=== PATIENT | female | born 1940 | race Caucasian/White ===

== ENCOUNTER → 2017-03-27 | Outpatient (CLI) | payer MEDICARE, OTHER ==
[~2017-03-27] MED LIST: AMIT50TA PO; CHOL100011 PO; CHOL10002 PO; CIPR500T87 PO; COLE625T12 PO; CRAN1TAB6 PO; CRAN500C PO; EZET1TAB35 PO; FENO145T32 PO; FENO160T PO; FERR-46 PO; GABA300C10 PO; GABA600T2 PO; HYDR-3241 PO; LEVO88TA4 PO; MULT-658 PO; MULT1TAB60 PO; NIAC500T7 PO; POTA10TA4 PO; PREG50CA PO; PROP80CA3 PO; SIMV80TA3 PO; SULF1TAB24 PO
== END | disposition home or self-care (01) ==
LOC: RAD 09:57
PROVIDERS: ATTEND Urology
DX: N20.0 Calculus of kidney (principal); K59.00 Constipation, unspecified
CPT/HCPCS: 74000

== ENCOUNTER 2017-03-28 05:38 | Day surgery (SDC) | payer MEDICARE, OTHER ==
[~2017-03-28] VITALS: Ht 162.6 cm; Wt 77.2 kg
[2017-03-28] MEDS ORDERED: LACTATED RINGERS 1,000 ML IV SCH (06:04)
[2017-03-28 06:06] VITALS: BP 166/67
[2017-03-28] MEDS ORDERED: LIDOCAINE 1%, 2ML SQ PRN (06:30)
[2017-03-28] MEDS ORDERED: FENTANYL PF 100 MCG/2ML ONE (07:09)
[2017-03-28] MEDS ORDERED: MIDAZOLAM 1 MG/ML, 2ML ONE (07:09)
[2017-03-28] MEDS ORDERED: PROPOFOL 10 MG/ML, 20ML ONE (07:10)
[2017-03-28] MEDS ORDERED: LIDOCAINE-MPF 2% ,5ML ONE (07:10)
[2017-03-28] MEDS ORDERED: ROCURONIUM 10 MG/ML ONE (07:10)
[2017-03-28] MEDS ORDERED: PHENYLEPHRINE 10 MG/ML ONE (07:11)
[2017-03-28] MEDS ORDERED: LIDOCAINE 4%, 4 ML SYR/CANN TP ONE (07:12)
[2017-03-28] MEDS ORDERED: CIPROFLOXACIN/PMX 400MG/200ML 200 ML ONE (07:29)
[2017-03-28] MEDS ORDERED: ONDANSETRON 2MG/ML, 2ML ONE ×2 (07:30)
[2017-03-28] MEDS ORDERED: DEXAMETHASONE 4 MG/ML, 1ML ONE ×2 (07:30)
[2017-03-28] MEDS ORDERED: GLYCOPYRROLATE 0.2MG/1ML, 5ML ONE (08:08)
[2017-03-28] MEDS ORDERED: NEOSTIGMINE 1 MG/ML, 10ML ONE (08:08)
[2017-03-28] MEDS ORDERED: MEPERIDINE/PF 25MG/0.5ML IVPush PRN (08:30)
[2017-03-28] MEDS ORDERED: OXYcodone 5 MG/5 ML ORAL.SOL UDC PO PRN (08:30)
[2017-03-28] MEDS ORDERED: ONDANSETRON 2MG/ML, 2ML IVPush PRN (08:30)
[2017-03-28] MEDS ORDERED: FENTANYL PF 100 MCG/2ML IV PRN (08:30)
[2017-03-28] MEDS ORDERED: ACETAMINOPHEN 325 MG TABLET PO PRN (08:30)
[2017-03-28] MEDS ORDERED: HYDROmorphone 1 MG/ML, 1ML IV PRN (08:30)
[2017-03-28] MEDS ORDERED: hydrALAzine 20 MG/ML, 1ML IV PRN (08:30)
[2017-03-28] MEDS ORDERED: LABETALOL 5MG/ML, 20ML IV PRN (08:30)
[2017-03-28] MEDS ORDERED: PROMETHAZINE 25 MG/ML, 1ML IV PRN (08:30)
[2017-03-28] MEDS ORDERED: ACETAMINOPHEN 325 MG TABLET ONE (09:44)
[2017-03-28] MEDS ORDERED: ACETAMINOPHEN 650 MG/20.3 ML UDC ONE (09:44)
== END 2017-03-28 11:15 ==
LOC: OUT 05:38
PROVIDERS: ATTEND Urology
DX: N20.0 Calculus of kidney (principal); E78.5 Hyperlipidemia, unspecified; E03.9 Hypothyroidism, unspecified; Z87.891 Personal history of nicotine dependence; Z87.440 Personal history of urinary (tract) infections; Z86.14 Personal history of Methicillin resistant Staphylococcus aureus infection; Z88.0 Allergy status to penicillin; Z88.8 Allergy status to other drugs, medicaments and biological substances
CPT/HCPCS: 50590; J0744; J1100; J2250; J2370; J2405; J2704; J2710; J3010; J3490; J7120

== ENCOUNTER 2019-03-23 10:12 | Inpatient (IN) | payer MEDICARE, OTHER ==
[~2019-03-23] VITALS: Ht 162.6 cm; Wt 78.4 kg
[~2019-03-23 10:12] MED LIST changes: -GABA600T2 PO; +GABA600T7 PO; -NIAC500T7 PO; +SIMV80TA18 PO; -SIMV80TA3 PO; +[UNRECOGNIZED DRUG - CODE] PO
[2019-03-23] MEDS ORDERED: SODIUM CHLORIDE FLUSH 10ML SYR IVF ONE (11:00)
--- NOTE | 2019-03-23 11:02 | NUR ---
PT WALKED TO BATHROOM, PROVIDED URINE SAMPLE. URINE WALKED TO LAB
[2019-03-23 11:15] LABS: BASOPHILS # (AUTO) 0.02 x10^3/uL (0-0.1); BASOPHILS % (AUTO) 0 % (0-1); EOSINOPHILS # (AUTO) 0.28 x10^3/uL (0-0.4); EOSINOPHILS % (AUTO) 2 % (1-7); LYMPHOCYTES % (AUTO) 16 % (22-44); MD NO; MEAN CORPUSCULAR HEMOGLOBIN 31.6 pg (27.0-34.8); MEAN CORPUSCULAR HGB CONC 32.9 g/dL (32.4-35.8); MEAN CORPUSCULAR VOLUME 96.2 fL (80-100); MEAN PLATELET VOLUME 8.9 fL (7.4-10.4); MONOCYTES # (AUTO) 0.92 x10^3/uL (0.2-0.8); MONOCYTES % (AUTO) 8 % (2-9); NEUTROPHILS # (AUTO) 9.09 x10^3/uL (1.8-6.8); NEUTROPHILS % (AUTO) 74 % (42-75); PLATELET COUNT 225 x10^3/uL (130-400); RED BLOOD COUNT 4.55 x10^6/uL (3.82-5.3); RED CELL DISTRIBUTION WIDTH 13.2 % (9.6-15.2)
[2019-03-23 11:25] LABS: ALBUMIN 3.8 g/dL (3.4-5.0); ANION GAP 7 mmol/L (5-15); CALCIUM 9.3 mg/dL (8.5-10.1); CHLORIDE 107 mmol/L (98-107)
[2019-03-23 11:29] LABS: ALANINE AMINOTRANSFERASE 27 U/L (12-78); ALKALINE PHOSPHATASE 76 U/L (45-117); BILIRUBIN,TOTAL 0.8 mg/dL (0.2-1.0); CREATININE 1.17 mg/dL (0.55-1.02); TOTAL PROTEIN 7.9 g/dL (6.4-8.2)
--- NOTE | 2019-03-23 12:06 | NUR ---
[place] COMMODE PT UP AND DOWN TO BATHROOM FREQUENTLY ALTHOUGH UNABLE TO PROVIDE STOOL SAMPLE, STATES "I JUST ALWAYS FEEL LIKE I HAVE TO GO". CALL L[facility] MARKO GALE, PT ON MONITOR. FAMILY AT BEDSIDE.
[2019-03-23 12:33] LABS: CULTURE INDICATED? YES; MICROSCOPIC INDICATED
--- NOTE | 2019-03-23 12:36 | NUR ---
PT TO CT
[2019-03-23] MEDS ORDERED: CEFTRIAXONE PMX 1GM/50ML 50 ML ONE (13:43)
--- NOTE | 2019-03-23 13:52 | NUR ---
REPORT FROM BREAK RN: PT TO BE ADMITTED. ABX INFUSING. AWAITING BED ASSIGNMENT
[2019-03-23] MEDS ORDERED: hydrALAzine 20 MG/ML, 1ML IVPush PRN (14:00)
[2019-03-23] MEDS ORDERED: ACETAMINOPHEN 325 MG TABLET PO PRN (14:00)
[2019-03-23] MEDS ORDERED: CEFTRIAXONE PMX 1GM/50ML 50 ML IV ONE (14:00)
[2019-03-23] MEDS ORDERED: GUAIFENESIN/DM 200-20MG, 10ML UDC PO PRN (14:00)
[2019-03-23] MEDS ORDERED: TRAZODONE 50MG TABLET PO PRN (14:00)
[2019-03-23] MEDS ORDERED: BUTALB/APAP/CAFFEINE 50MG/325MG/40MG PO PRN (14:00)
[2019-03-23] MEDS ORDERED: METRONIDAZOLE PMX 500MG/100ML 100 ML IV ONE (14:00)
[2019-03-23] MEDS ORDERED: ONDANSETRON ODT 4 MG PO PRN (14:00)
[2019-03-23] MEDS ORDERED: ONDANSETRON 2MG/ML, 2ML IVPush PRN (14:00)
[2019-03-23] MEDS ORDERED: POLYETHYLENE GLYCOL 17 GM PACKET PO PRN (14:00)
[2019-03-23] MEDS ORDERED: SODIUM CHLORIDE 0.9% 1,000ML IVBOLUS ONE (14:30)
--- NOTE | 2019-03-23 14:33 | NUR ---
REPORT TO LETA LÓPEZ
[2019-03-23 15:06] LABS: FREE T4 (FREE THYROXINE) 1.12 ng/dL (0.76-1.46)
[2019-03-23] MEDS ORDERED: FENO145T32 PO (15:10)
[2019-03-23] MEDS ORDERED: NITR50CA PO (15:10)
[2019-03-23] MEDS ORDERED: PROP80TA PO (15:10)
[2019-03-23] MEDS ORDERED: HYDROmorphone 1 MG/ML, 1ML VIAL ONE (15:29)
[2019-03-23] MEDS: HYDROmorphone 2 MG/ML, 1ML IVPush PRN ×3 (15:33→21:38)
[2019-03-23] MEDS: CHOLECALCIFEROL 400 UNITS/ML ORAL SOL PO SCH (16:30)
[2019-03-23 16:47] VITALS: BP 125/73
[2019-03-23] MEDS: METRONIDAZOLE PMX 500MG/100ML 100 ML IV SCH (18:00)
[2019-03-23] MEDS: GABAPENTIN 300 MG CAPSULE PO SCH ×2 (18:03→21:39)
[2019-03-23] MEDS: COLESEVELAM 625 MG TABLET PO SCH ×2 (18:04→21:38)
[2019-03-23] MEDS: ASCORBIC ACID 500 MG TABLET PO SCH (18:04)
[2019-03-23 18:57] VITALS: BP 107/62
[2019-03-23] MEDS ORDERED: AMITRIPTYLINE 50 MG TABLET PO SCH (21:00)
[2019-03-23] MEDS: SIMVASTATIN 40 MG TABLET PO SCH (21:38)
[2019-03-23] MEDS ORDERED: METRONIDAZOLE PMX 500MG/100ML 100 ML IV SCH (22:00)
[2019-03-24 00:30] VITALS: BP 98/63
[2019-03-24] MEDS: METRONIDAZOLE PMX 500MG/100ML 100 ML IV SCH ×3 (01:55→16:57)
[2019-03-24 05:17] LABS: BASOPHILS # (AUTO) 0.06 x10^3/uL (0-0.1); BASOPHILS % (AUTO) 1 % (0-1); EOSINOPHILS # (AUTO) 0.13 x10^3/uL (0-0.4); EOSINOPHILS % (AUTO) 1 % (1-7); LYMPHOCYTES # (AUTO) 1.93 x10^3/uL (1-3.4); LYMPHOCYTES % (AUTO) 19 % (22-44); MD NO; MEAN CORPUSCULAR HEMOGLOBIN 31.1 pg (27.0-34.8); MEAN CORPUSCULAR HGB CONC 32.8 g/dL (32.4-35.8); MEAN CORPUSCULAR VOLUME 94.8 fL (80-100); MEAN PLATELET VOLUME 8.6 fL (7.4-10.4); MONOCYTES # (AUTO) 1.03 x10^3/uL (0.2-0.8); MONOCYTES % (AUTO) 10 % (2-9); NEUTROPHILS # (AUTO) 6.89 x10^3/uL (1.8-6.8); NEUTROPHILS % (AUTO) 69 % (42-75); PLATELET COUNT 163 x10^3/uL (130-400); RED BLOOD COUNT 3.63 x10^6/uL (3.82-5.3); RED CELL DISTRIBUTION WIDTH 13.1 % (9.6-15.2)
[2019-03-24 05:23] LABS: ALBUMIN 2.8 g/dL (3.4-5.0); ANION GAP 6 mmol/L (5-15); CALCIUM 8.4 mg/dL (8.5-10.1); CHLORIDE 111 mmol/L (98-107)
[2019-03-24 05:27] LABS: ALANINE AMINOTRANSFERASE 26 U/L (12-78); ALKALINE PHOSPHATASE 60 U/L (45-117); BILIRUBIN,TOTAL 0.7 mg/dL (0.2-1.0); CREATININE 1.12 mg/dL (0.55-1.02)
[2019-03-24 07:25] VITALS: BP 108/69
[2019-03-24] MEDS: FENOFIBRATE 145 MG TABLET PO SCH (07:51)
[2019-03-24] MEDS: GABAPENTIN 300 MG CAPSULE PO SCH ×3 (07:52→20:37)
[2019-03-24] MEDS: FERROUS SULFATE 325 MG TABLET PO SCH (07:52)
[2019-03-24] MEDS: COLESEVELAM 625 MG TABLET PO SCH ×3 (07:52→20:38)
[2019-03-24] MEDS: MULTIVITS,STRESS FORMULA 1 TABLET PO SCH (07:53)
[2019-03-24] MEDS: ASCORBIC ACID 500 MG TABLET PO SCH ×2 (07:53→16:53)
[2019-03-24] MEDS ORDERED: POTASSIUM CHLORIDE 20 MEQ TAB.ER.PRT PO ONE (08:00)
[2019-03-24] MEDS: CEFTRIAXONE PMX 1GM/50ML 50 ML IV SCH ×2 (08:03→20:36)
[2019-03-24] MEDS: MAGNESIUM OXIDE 400 MG TABLET PO SCH (08:03)
[2019-03-24] MEDS: LEVOTHYROXINE 88 MCG TABLET PO SCH (08:03)
[2019-03-24] MEDS: HYDROmorphone 2 MG/ML, 1ML IVPush PRN (08:50)
[2019-03-24] MEDS ORDERED: PREGABALIN 25 MG CAPSULE PO SCH (09:00)
[2019-03-24] MEDS ORDERED: TEMPLATE NON-FORMULARY MED. (Cranberry Extract** (Cran-Max**) 500 MG) PO SCH (09:00)
[2019-03-24] MEDS ORDERED: SIMV80TA18 PO (09:49)
[2019-03-24] MEDS ORDERED: AMIT100T PO (09:51)
[2019-03-24 12:19] VITALS: BP 93/59
[2019-03-24] MEDS: HYDROcodone/APAP 5/325 TABLET PO PRN ×2 (14:12→20:38)
[2019-03-24] MEDS: POTASSIUM CHLORIDE 20 MEQ in SODIUM CHLORIDE 0.45% 1,000 ML IV SCH (14:18)
[2019-03-24] MEDS: CHOLECALCIFEROL 400 UNITS/ML ORAL SOL PO SCH (16:30)
[2019-03-24 18:47] VITALS: BP 98/56
[2019-03-24] MEDS: SIMVASTATIN 40 MG TABLET PO SCH (20:39)
[2019-03-24] MEDS ORDERED: AMITRIPTYLINE 50 MG TABLET PO SCH (21:00)
[2019-03-24] MEDS ORDERED: SIMVASTATIN 40 MG TABLET PO SCH (21:00)
[2019-03-25 00:12] VITALS: BP 96/72
[2019-03-25] MEDS: METRONIDAZOLE PMX 500MG/100ML 100 ML IV SCH ×2 (02:00→10:22)
[2019-03-25] MEDS: POTASSIUM CHLORIDE 20 MEQ in SODIUM CHLORIDE 0.45% 1,000 ML IV SCH (02:01)
[2019-03-25] MEDS: HYDROcodone/APAP 5/325 TABLET PO PRN (02:08)
[2019-03-25] MEDS: LEVOTHYROXINE 88 MCG TABLET PO SCH (05:29)
[2019-03-25 05:33] LABS: BASOPHILS # (AUTO) 0.01 x10^3/uL (0-0.1); BASOPHILS % (AUTO) 0 % (0-1); EOSINOPHILS # (AUTO) 0.25 x10^3/uL (0-0.4); EOSINOPHILS % (AUTO) 5 % (1-7); LYMPHOCYTES % (AUTO) 29 % (22-44); MD NO; MEAN CORPUSCULAR HEMOGLOBIN 31.5 pg (27.0-34.8); MEAN CORPUSCULAR HGB CONC 33.4 g/dL (32.4-35.8); MEAN CORPUSCULAR VOLUME 94.4 fL (80-100); MEAN PLATELET VOLUME 7.9 fL (7.4-10.4); MONOCYTES # (AUTO) 0.53 x10^3/uL (0.2-0.8); MONOCYTES % (AUTO) 10 % (2-9); NEUTROPHILS # (AUTO) 2.87 x10^3/uL (1.8-6.8); NEUTROPHILS % (AUTO) 56 % (42-75); PLATELET COUNT 151 x10^3/uL (130-400)
[2019-03-25 05:42] LABS: CHLORIDE 115 mmol/L (98-107)
[2019-03-25 05:47] LABS: ALANINE AMINOTRANSFERASE 20 U/L (12-78); ALBUMIN 2.5 g/dL (3.4-5.0); ALKALINE PHOSPHATASE 56 U/L (45-117); ANION GAP 4 mmol/L (5-15); BILIRUBIN,TOTAL 0.3 mg/dL (0.2-1.0); CALCIUM 8.2 mg/dL (8.5-10.1); TOTAL PROTEIN 5.6 g/dL (6.4-8.2)
[2019-03-25 07:06] VITALS: BP 110/56
[2019-03-25] MEDS ORDERED: POTASSIUM PHOSPHATE 44 MEQ in SODIUM CHLORIDE 0.9% 500 ML IV ONE (07:30)
[2019-03-25] MEDS: MULTIVITS,STRESS FORMULA 1 TABLET PO SCH (08:01)
[2019-03-25] MEDS: FERROUS SULFATE 325 MG TABLET PO SCH (08:02)
[2019-03-25] MEDS: CEFTRIAXONE PMX 1GM/50ML 50 ML IV SCH (08:02)
[2019-03-25] MEDS: FENOFIBRATE 145 MG TABLET PO SCH (08:02)
[2019-03-25] MEDS: ASCORBIC ACID 500 MG TABLET PO SCH (08:02)
[2019-03-25] MEDS: MAGNESIUM OXIDE 400 MG TABLET PO SCH (08:02)
[2019-03-25] MEDS: GABAPENTIN 300 MG CAPSULE PO SCH (08:02)
[2019-03-25] MEDS: COLESEVELAM 625 MG TABLET PO SCH (08:02)
[2019-03-25] MEDS ORDERED: NEUTRA PHOS K 250 MG TABLET PO SCH (12:00)
[2019-03-25] MEDS ORDERED: POTASSIUM CHLORIDE 20 MEQ TAB.ER.PRT PO SCH (12:00)
[2019-03-25] MEDS ORDERED: METR500T PO (12:05)
[2019-03-25] MEDS ORDERED: MAGN400T50 PO (12:05)
[2019-03-25] MEDS ORDERED: POTA20TA6 PO (12:05)
[2019-03-25] MEDS ORDERED: PHOS250T3 PO (12:05)
[2019-03-25] MEDS ORDERED: CEFD300C37 PO (12:05)
[2019-03-25 12:48] VITALS: BP 108/70
== END 2019-03-25 16:30 | disposition home or self-care (01) | DRG 371 ==
LOC: ED 12:14 → EDIP 14:18 → 3N 16:05
PROVIDERS: ADMIT Family Medicine; ATTEND Family Medicine
DX: A04.9 Bacterial intestinal infection, unspecified (principal); J18.1 Lobar pneumonia, unspecified organism; N17.9 Acute kidney failure, unspecified; N39.0 Urinary tract infection, site not specified; E03.9 Hypothyroidism, unspecified; E78.00 Pure hypercholesterolemia, unspecified; E78.5 Hyperlipidemia, unspecified; E83.39 Other disorders of phosphorus metabolism; E83.42 Hypomagnesemia; E86.0 Dehydration; E87.6 Hypokalemia; G57.93 Unspecified mononeuropathy of bilateral lower limbs; H54.7 Unspecified visual loss; I10 Essential (primary) hypertension; Z87.442 Personal history of urinary calculi; Z90.49 Acquired absence of other specified parts of digestive tract; Z90.710 Acquired absence of both cervix and uterus; Z88.0 Allergy status to penicillin
CPT/HCPCS: 36415; 74177; 80053; 81001; 83605; 83735; 84100; 84145; 84439; 84443; 84481; 85025; 87040; 87077; 87086; 87186; 99285; G0378; J0696; J1170; J3480; J7030; J7040

== ENCOUNTER 2019-04-18 14:33 | Outpatient (CLI) | payer MEDICARE, OTHER ==
[~2019-04-18 14:33] MED LIST changes: +AMIT100T PO; +CEFD300C37 PO; +MAGN400T50 PO; +METR500T PO; +NITR50CA PO; +PHOS250T3 PO; +POTA20TA6 PO; +PROP80TA PO
== END 2019-04-18 23:59 | disposition home or self-care (01) ==
LOC: CFH 14:33
PROVIDERS: ATTEND Nurse Practitioner Family
DX: I65.23 Occlusion and stenosis of bilateral carotid arteries (principal); R29.6 Repeated falls; R29.810 Facial weakness; R47.01 Aphasia; Z86.14 Personal history of Methicillin resistant Staphylococcus aureus infection; Z88.0 Allergy status to penicillin
CPT/HCPCS: 93880

== ENCOUNTER 2019-05-23 07:32 | Outpatient (CLI) | payer MEDICARE, OTHER | END 2019-05-23 23:59 | disposition home or self-care (01) | LOC: CVU 07:32 | PROVIDERS: ATTEND Nurse Practitioner Family | DX: I08.3 Combined rheumatic disorders of mitral, aortic and tricuspid valves (principal); E78.5 Hyperlipidemia, unspecified; Z86.73 Personal history of transient ischemic attack (TIA), and cerebral infarction without residual deficits; Z87.891 Personal history of nicotine dependence | CPT/HCPCS: 93306 ==

== ENCOUNTER 2019-07-21 13:04 | Emergency (ER) | payer MEDICARE, OTHER ==
[~2019-07-21] VITALS: Ht 162.6 cm; Wt 69.3 kg
[2019-07-21 13:28] LABS: BASOPHILS # (AUTO) 0.02 x10^3/uL (0-0.1); BASOPHILS % (AUTO) 1 % (0-1); EOSINOPHILS % (AUTO) 4 % (1-7); LYMPHOCYTES # (AUTO) 1.49 x10^3/uL (1-3.4); LYMPHOCYTES % (AUTO) 28 % (22-44); MD NO; MEAN CORPUSCULAR HEMOGLOBIN 30.4 pg (27.0-34.8); MEAN CORPUSCULAR HGB CONC 33.1 g/dL (32.4-35.8); MEAN CORPUSCULAR VOLUME 91.8 fL (80-100); MEAN PLATELET VOLUME 8.6 fL (7.4-10.4); MONOCYTES # (AUTO) 0.49 x10^3/uL (0.2-0.8); MONOCYTES % (AUTO) 9 % (2-9); NEUTROPHILS # (AUTO) 3.13 x10^3/uL (1.8-6.8); NEUTROPHILS % (AUTO) 59 % (42-75); PLATELET COUNT 208 x10^3/uL (130-400); RED BLOOD COUNT 4.16 x10^6/uL (3.82-5.3); RED CELL DISTRIBUTION WIDTH 12.6 % (9.6-15.2)
[2019-07-21 13:39] LABS: ALBUMIN 3.3 g/dL (3.4-5.0); ANION GAP 5 mmol/L (5-15); CALCIUM 9.8 mg/dL (8.5-10.1); CHLORIDE 111 mmol/L (98-107)
[2019-07-21 13:42] LABS: ALANINE AMINOTRANSFERASE 17 U/L (12-78); ALKALINE PHOSPHATASE 74 U/L (45-117); BILIRUBIN,TOTAL 0.7 mg/dL (0.2-1.0); CREATININE 1.18 mg/dL (0.55-1.02); TOTAL PROTEIN 7.6 g/dL (6.4-8.2)
--- NOTE | 2019-07-21 16:15 | NUR ---
PT TO ROOM FROM LOBBY AT THIS TIME.
[2019-07-21] MEDS ORDERED: SODIUM CHLORIDE 0.9% 1,000 ML IV ONE (16:25)
[2019-07-21] MEDS ORDERED: SODIUM CHLORIDE FLUSH 10ML SYR IVF ONE (16:30)
--- NOTE | 2019-07-21 16:42 | NUR ---
FIRST CONTACT WITH PT. PT FEELS LIKE SHE HAS TO HAVE A BM OFTEN. STOOL HAS MUCOUS AND LAST NIGHT NOTED BLOOD. STATES IT HAS BEEN GOING ON FOR 2 WEEKS. CHILLS, NO NAUSEA. ABDOMINAL CRAMPING. PT'S AOX4. RESPS EVEN AND UNLABORED. BP/SPO2 MONITORS IN PLACE. PT IS TAKING ABX NOW. CONTACT PRECAUTION PLACED.
[2019-07-21 16:53] LABS: CULTURE INDICATED? YES; MICROSCOPIC INDICATED
--- NOTE | 2019-07-21 17:03 | NUR ---
PIV EST ON R ARM WITH NO COMPLICATIONS. NS INFUSING AT THIS TIME. PT TOELRATED WELL.
--- NOTE | 2019-07-21 17:47 | NUR ---
BEDSIDE COMMODE IN ROOM.
[2019-07-21] MEDS ORDERED: OMNIPAQUE 350 MG/ML, 100ML BOTTLE ONE (18:28)
--- NOTE | 2019-07-21 18:57 | NUR ---
REPORT GIVEN TO JEREMIE LÓPEZ.
--- NOTE | 2019-07-21 19:06 | NUR ---
REPORT RECEIVED FROM RENE GALEANO. PLAN OF CARE DISCUSSED. NEED STOOL SAMPLE
[2019-07-21] MEDS ORDERED: CEFTRIAXONE PMX 1GM/50ML 50 ML IV ONE (19:30)
[2019-07-21] MEDS ORDERED: CEFTRIAXONE PMX 1GM/50ML 50 ML ONE (19:39)
[2019-07-21 19:43] VITALS: BP 123/99
--- NOTE | 2019-07-21 20:03 | NUR ---
IV ARYA RUNNING AT THIS TIME
--- NOTE | 2019-07-21 21:00 | NUR ---
Patient/Caregiver given discharge instructions and they have confirmed that they understand the instructions. Patient ambulatory with steady gait.
== END 2019-07-21 21:32 | disposition home or self-care (01) ==
LOC: ED 20:45
DX: N39.0 Urinary tract infection, site not specified (principal); G89.29 Other chronic pain; R10.84 Generalized abdominal pain; E03.9 Hypothyroidism, unspecified; E78.5 Hyperlipidemia, unspecified
CPT/HCPCS: 36415; 74177; 80053; 81001; 85025; 87077; 87086; 96365; 99285; J0696; J7030; Q9967; 87186

== ENCOUNTER → 2020-03-09 | Outpatient (CLI) | payer MEDICARE, OTHER ==
[~2020-03-09] MED LIST changes: +MULT-449 PO; -MULT1TAB60 PO
== END | disposition home or self-care (01) ==
LOC: CVU 07:29
PROVIDERS: ATTEND Nurse Practitioner
DX: M79.661 Pain in right lower leg (principal); I13.10 Hypertensive heart and chronic kidney disease without heart failure, with stage 1 through stage 4 chronic kidney disease, or unspecified chronic kidney disease; Z86.73 Personal history of transient ischemic attack (TIA), and cerebral infarction without residual deficits
CPT/HCPCS: 93922